=== PATIENT | male | born 1955 | race Caucasian/White ===

== ENCOUNTER 2017-05-01 01:46 | Emergency (ER) | payer BC, OTHER ==
[2017-05-01] MEDS ORDERED: Tetracaine HCl/PF 0.5% 4 ML Bottle EYEBOTH ONE (01:51)
[2017-05-01] MEDS ORDERED: Erythromycin Base 0.5% Ophth Oint 1 GM Tube EYEBOTH ONE (01:58)
[2017-05-01] MEDS ORDERED: Ibuprofen 800 MG Tab PO ONE (01:59)
[2017-05-01] MEDS ORDERED: Acetaminophen/oxyCODONE 325-5 MG Tab PO ONE (01:59)
--- NOTE | 2017-05-01 02:03 | EDM.PDOC ---
ED HPI GENERAL MEDICAL PROBLEM - General Chief Complaint: ENT Problem Stated Complaint: chun to eyes Time Seen by Provider: 05/01/17 01:52 Source of Information: Reports: Patient History Limitations: Reports: No Limitations - History of Present Illness INITIAL COMMENTS - FREE TEXT/NARRATIVE: 62 y/o M with bilat eye pain. Was watching son audrey today, wasn't using eye protection - states he was just shielding his eyes with his hands. Started to get severe eye pain this evening. Denies vision change. Wears glasses. Has had some watery discharge from both eyes. No additional complaint. 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 Bilateral Eye Pain Score (Numeric/FACES): 8 - Related Data Allergies Allergy/AdvReac Type Severity Reaction Status Date / Time No Known Allergies Allergy Verified 12/14/15 13:51 Home Meds: Home Meds Aspirin [Ecotrin] 81 mg PO DAILY 10/04/14 [History] Hydrochlorothiazide 25 mg PO DAILY 10/04/14 [History] Lisinopril 5 mg PO DAILY 10/04/14 [History] Potassium Chloride [Klor-Con M10] 10 meq PO DAILY 10/04/14 [History] glipiZIDE [Glucotrol XL] 10 mg PO BID 10/04/14 [History] metFORMIN [Glucophage] 1,000 mg PO QAM 10/04/14 [History] metFORMIN [Glucophage] 1,500 mg PO QPM 10/04/14 [History] Dulaglutide [Trulicity] 0.5 ml SUBCUT WEEKLY 12/14/15 [History] Acarbose 50 mg PO DAILY 05/01/17 [History] Erythromycin Base [Erythromycin 0.5% Ophth Oint] 1 applic OP Q4H #1 tube [Rx] Insulin Glarg,Human.Rec.Analog [LantUS Solostar] 16 units SQ DAILY 05/01/17 [ History] oxyCODONE 5 mg PO Q4H PRN #16 tablet 05/01/17 [Rx] Past Medical History HEENT History: Reports: Hard of Hearing, Impaired Vision Cardiovascular History: Reports: Hypertension Endocrine/Metabolic History: Reports: Diabetes, Type II Social & Family History - Tobacco Use Smoking Status *Q: Never Smoker - Alcohol Use Days Per Week of Alcohol Use: 0 - Recreational Drug Use Recreational Drug Use: No ED ROS ENT - Review of Systems Review Of Systems: See Below Constitutional: Reports: No Symptoms HEENT: Reports: Eye Pain. Denies: Vision Change Respiratory: Reports: No Symptoms Skin: Reports: No Symptoms ED EXAM, ENT - Physical Exam Exam: See Below Exam Limited By: No Limitations General Appearance: Alert, WD/WN, No Apparent Distress Eye Exam: Bilateral Eye: Conjunctival Injection, EOMI, PERRL, Other (Minimal bilat lid erythema without swelling. No visible ocular foreign bodies. Mild clear discharge bilaterally.) Ears: Normal External Exam Nose: Normal Inspection Mouth/Throat: Normal Inspection Head: Atraumatic, Normocephalic Neck: Normal Inspection Respiratory/Chest: No Respiratory Distress Neurological: Alert, Oriented, Normal Cognition Psychiatric: Normal Affect, Normal Mood Skin: Warm, Dry, Intact, Normal Color, No Rash Course - Vital Signs Last Recorded V/S: Last Vital Signs Temp 36.3 C 05/01/17 01:51 Pulse 115 H 05/01/17 01:51 Resp 18 05/01/17 01:51 BP 144/93 H 05/01/17 01:51 Pulse Ox 97 05/01/17 01:51 - Orders/Labs/Meds Meds: Medications Discontinued Medications Generic Name Dose Route Start Last Admin Trade Name Freq PRN Reason Stop Dose Admin Erythromycin 1 gm 05/01/17 01:58 Erythromycin 0.5% Ophth Oint EYEBOTH 05/01/17 01:59 ONETIME ONE Ibuprofen 800 mg 05/01/17 01:59 Motrin PO 05/01/17 02:00 ONETIME ONE Oxycodone/Acetaminophen 1 tab 05/01/17 01:59 Percocet 325-5 Mg PO 05/01/17 02:00 ONETIME ONE Tetracaine HCl 0.5 ml 05/01/17 01:51 Tetracaine 0.5% Steri-Unit Chloe EYEBOTH 05/01/17 01:52 ASDIRECTED ONE Departure - Departure Time of Disposition: 01:59 Disposition: Home, Self-Care 01 Clinical Impression: Photokeratitis of both eyes - Discharge Information Prescriptions: Erythromycin Base [Erythromycin 0.5% Ophth Oint] 1 applic OP Q4H #1 tube oxyCODONE 5 mg PO Q4H PRN #16 tablet PRN Reason: Pain Referrals: Adriana Pardo MD [Primary Care Provider] - Forms: ED Department Discharge Additional Instructions: 1. Use erythromycin antibiotic ointment every 4 hours while awake 2. Take oxycodone as prescribed for pain. You may also take ibuprofen in addition to oxycodone. 3. Follow up with an eye doctor if pain hasn't improved by the end of the week 4. Return to the Emergency Department if you have any new concerning symptoms
[2017-05-01 02:33] VITALS: BP 125/88
== END 2017-05-01 02:22 | disposition home or self-care (01) ==
LOC: JD.ED 01:46
DX: H16.133 Photokeratitis, bilateral (principal); I10 Essential (primary) hypertension; E11.9 Type 2 diabetes mellitus without complications; Z79.4 Long term (current) use of insulin; Z79.82 Long term (current) use of aspirin; Z79.899 Other long term (current) drug therapy; W89.8XXA Exposure to other man-made visible and ultraviolet light, initial encounter
CPT/HCPCS: 99283; A9270